=== PATIENT | male | born 1975 | race Caucasian/White ===

== ENCOUNTER 2019-03-17 11:12 | Emergency (ER) | payer OTHER ==
[~2019-03-17] VITALS: Ht 177.8 cm; Wt 88.5 kg
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
[2019-03-17] MEDS ORDERED: TETANUS,DIPTH,PERTUSS P/F (BOOSTRIX) 0.5 ML VIAL IM ONE (11:30)
--- NOTE | 2019-03-17 11:57 | Diagnostic Imaging Report ---
INDICATION: Head trauma. EXAMINATION: Portable chest at 11:42 a.m. FINDINGS: Heart size and pulmonary vascularity are normal. Lungs are clear. There are no effusions or pneumothoraces. IMPRESSION: Negative chest. Dictated by: Dictated on workstation # [id number]
[2019-03-17] MEDS ORDERED: fentaNYL INJECTION 100 MCG/2 ML AMP IVP ONE (12:15)
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
--- NOTE | 2019-03-17 12:41 | NUR ---
assisted pt with use of urinal, pt denies any other needs or c/o at this time, vs assessed and stable, pt shows no s/s of distress, will continue to monitor
[2019-03-17] MEDS ORDERED: CEPH-507 PO (12:42)
[2019-03-17] MEDS ORDERED: ACHD5005 PO (12:42)
--- NOTE | 2019-03-17 12:52 | NUR ---
assisted provider with wound care, xeroform applied to L ear with sterile 4x4 and secured with tape
[2019-03-17 13:25] VITALS: BP 124/95
== END 2019-03-17 13:29 | disposition home or self-care (01) ==
LOC: ER 11:16
DX: S02.40FA Zygomatic fracture, left side, initial encounter for closed fracture (principal); S01.302A Unspecified open wound of left ear, initial encounter; R40.2142 Coma scale, eyes open, spontaneous, at arrival to emergency department; R40.2252 Coma scale, best verbal response, oriented, at arrival to emergency department; R40.2362 Coma scale, best motor response, obeys commands, at arrival to emergency department; Z23 Encounter for immunization; W22.09XA Striking against other stationary object, initial encounter; Y92.59 Other trade areas as the place of occurrence of the external cause; Y99.0 Civilian activity done for income or pay
CPT/HCPCS: 70450; 71045; 72125; 90471; 90715